=== PATIENT | female | born 1985 | race Caucasian/White ===

== ENCOUNTER 2019-02-26 15:32 | Emergency (ER) | payer SELFPAY ==
[2019-02-26] MEDS ORDERED: NS 0.9% 1000 ML** 1,000 ML IV ONE (16:10)
--- NOTE | 2019-02-26 16:13 | UC ---
Dizzy HPI HPI Summary: PATIENT WAS DIAGNOSED WITH THE FLU 8 DAYS AGO. TOOK TAMIFLU FOR 5 DAYS. STATES SHE STILL FEELING EXTREMELY RUNDOWN AND FATIGUED. COUGHING A LOT. HAS STARTED TO FEEL DIZZY AND LIGHTHEADED. WORSE WITH CHANGE IN POSITION BUT NOT WORSE WITH HEAD MOVEMENT. SAYS SHE HAS INTERMITTENTLY BLURRY VISION. DENIES ANY HEAD TRAUMA. NO SYNCOPE. NO FEVER. HAS BEEN EATING AND DRINKING NORMALLY. - History Of Current Complaint Chief Complaint: UCRespiratory Stated Complaint: DIZZY, VISION ISSUES Time Seen by Provider: 02/26/19 15:57 Hx Obtained From: Patient Hx Last Menstrual Period: one month ago Onset/Duration: Gradual Onset, Lasting Days, Still Present Timing: Constant Severity Initially: Moderate Severity Currently: Moderate Pain Intensity: 4 Pain Scale Used: 0-10 Numeric Character: Head Spinning, Lightheaded, Dizzy Aggravating Factor(s): Nothing Alleviating Factor(s): Nothing - Allergies/Home Medications Allergies/Adverse Reactions: Allergies Allergy/AdvReac Type Severity Reaction Status Date / Time codeine Allergy Rash Verified 02/26/19 15:43 sumatriptan [From Imitrex] Allergy Rash Verified 02/26/19 15:43 PMH/Surg Hx/FS Hx/Imm Hx Neurological History: Migraine Other History Of: Negative For: Anticoagulant Therapy - Surgical History Surgical History: Yes Surgery Procedure, Year, and Place: CHOLEYSTECTOMY/TUBIAL LAGATION - Family History Known Family History: Positive: Non-Contributory - Social History Alcohol Use: Rare Substance Use Type: None Smoking Status (MU): Heavy Every Day Tobacco Smoker Review of Systems All Other Systems Reviewed And Are Negative: Yes Constitutional: Positive: Chills, Fatigue ENT: Positive: Nasal Discharge Respiratory: Positive: Cough Cardiovascular: Positive: Negative Gastrointestinal: Positive: Negative Neurological: Positive: Other - dizzy Physical Exam Triage Information Reviewed: Yes Appearance: No Pain Distress, Well-Nourished, Ill-Appearing - FATIGUED Vital Signs: Initial Vital Signs Temp 99.2 F 02/26/19 15:40 Pulse 92 02/26/19 15:40 Resp 18 02/26/19 15:40 BP 135/92 02/26/19 15:40 Pulse Ox 100 02/26/19 15:40 Vital Signs Reviewed: Yes Eyes: Positive: Conjunctiva Clear, Other: - PERRL, EOMI. NO NYSTAGMUS ENT: Positive: Hearing grossly normal, Pharynx normal, TMs normal Neck: Positive: Supple, Nontender, No Lymphadenopathy Respiratory Exam: Normal Cardiovascular Exam: Normal Abdomen Description: Positive: Soft Musculoskeletal: Positive: No Edema Neurological: Positive: Alert Psychological: Positive: Age Appropriate Behavior Skin: Negative: Rashes Diagnostics - Radiology CXR Radiology Interpretation Completed By: Radiologist Summary of Radiographic Findings: No active cardiopulmonary disease is noted Re-Evaluation - Re-Evaluation First Eval Re-Evaluation Time: 18:00 - SLIGHTLY BETTER AFTER 1L NS Change: Improved Dizzy Course/Dx - Course Course Of Treatment: PATIENT FELT SLIGHTLY BETTER AFTER 1 L OF NORMAL SALINE. ORTHOSTATIC VITAL SIGNS UNREMARKABLE. CXR UNREMARKABLE. SUSPECT SHE IS SIMPLY STILL RECOVERING FROM HER RECENT DIAGNOSIS OF FLU HOWEVER I DID DISCUSS WITH THE PATIENT OUR INABILITY TO EVALUATE FOR ANY INTRACRANIAL PATHOLOGY. DISCUSSED TRANSFER TO THE ER FOR FURTHER EVALUATION HOWEVER SHE DECLINES. ADVISED THAT SHE GO DIRECTLY TO THE CLOSEST ER IF HER SYMPTOMS WORSEN OR PERSIST OVER THE NEXT FEW DAYS. - Differential Dx/Diagnosis Provider Diagnosis: Dizziness Discharge ED - Sign-Out/Discharge Documenting (check all that apply): Patient Departure All imaging exams completed and their final reports reviewed: Yes - Discharge Plan Condition: Stable Disposition: HOME Patient Education Materials: Dizziness (ED) Forms: *Work Release Referrals: Makayla Higuera PA [Primary Care Provider] - 3 Days Additional Instructions: I SUSPECT YOUR SYMPTOMS ARE DUE TO YOUR RECENT DIAGNOSIS OF FLU AND THAT YOU'RE SIMPLY STILL RECOVERING. YOU FELT A LITTLE BETTER AFTER 1 L OF NORMAL SALINE HOWEVER WE ARE UNABLE TO ADEQUATELY EVALUATE FOR ANY POSSIBLE INTRACRANIAL PATHOLOGY. YOU HAVE DECLINED TRANSFER TO THE HOSPITAL TODAY. IF YOU DO NOT CONTINUE TO FEEL BETTER AND BETTER OVER THE NEXT FEW DAYS GO TO THE CLOSEST ER FOR FURTHER EVALUATION. - Billing Disposition and Condition Condition: STABLE Disposition: Home
[2019-02-26 19:08] VITALS: BP 135/94
== END 2019-02-26 18:20 | disposition home or self-care (01) ==
LOC: UCEAST 15:32
DX: R42 Dizziness and giddiness (principal); R53.83 Other fatigue; R68.83 Chills (without fever); F17.290 Nicotine dependence, other tobacco product, uncomplicated; Z88.5 Allergy status to narcotic agent; Z88.8 Allergy status to other drugs, medicaments and biological substances
CPT/HCPCS: 71046; 96360; 99212; G0463